=== PATIENT | male | born 1995 | race Caucasian/White ===

== ENCOUNTER 2021-07-04 00:12 | Emergency (ER) | payer SELFPAY ==
[2021-07-04] MEDS ORDERED: fentaNYL Drip 2500mCg/250mlNS 250 ML IV ONE (00:15)
[2021-07-04] MEDS ORDERED: MIDAZOLAM DRIP 50 mg/50mL 50 ML IV ONE (00:20)
[2021-07-04] MEDS ORDERED: ROCURONIUM 10MG/ML 10ML VIAL IV ONE ×2 (00:30→00:45)
[2021-07-04] MEDS ORDERED: HYDROmorphone HCL 2 MG/ML VL IV ONE ×3 (00:45→01:15)
[2021-07-04] MEDS ORDERED: SODIUM CHLORIDE 0.9% 1,000 ML IV ONE (00:45)
[2021-07-04] MEDS ORDERED: MIDAZOLAM DRIP 50 mg/50mL 50 ML IV SCH (00:45)
[2021-07-04] MEDS ORDERED: ETOMIDATE (2MG/ML) 20ML VIAL IV ONE (00:45)
[2021-07-04] MEDS ORDERED: LACTATED RINGER'S 2,000 ML IV ONE (00:45)
[2021-07-04] MEDS ORDERED: SUCCINYLCHOLINE CHLORIDE 20 MG/ML 10ML VIAL IV ONE (00:45)
[2021-07-04 00:50] VITALS: BP 140/76
[2021-07-04] MEDS: fentaNYL Drip 2500mCg/250mlNS 250 ML IV SCH (00:50)
[2021-07-04 01:12] LABS: Basophils # (auto) 0.1 10 ^3/uL (0-0.2); Basophils % (auto) 0.5 % (0.0-2.0); Eosinophils # (auto) 0.1 10 ^3/uL (0-0.8); Eosinophils % (auto) 0.5 % (0.0-7.0); Hematocrit 44.7 % (41.0-53.0); Hemoglobin 15.4 g/dL (13.5-17.5); Lymphocytes # (auto) 2.7 10 ^3/uL (0.4-5.4); Lymphocytes % (auto) 20.8 % (10.0-50.0); Mean Corpuscular Hemoglobin 31.5 pg (28.0-32.0); Mean Corpuscular Hgb Conc. 34.5 g/dL (32.0-36.0); Mean Corpuscular Volume 91.4 fL (80.0-100.0); Monocytes # (auto) 0.7 10 ^3/uL (0-1.3); Monocytes % (auto) 5.2 % (0.0-12.0); Neutrophils # (auto) 9.3 10 ^3/uL (1.6-8.6); Red Cell Distribution Width 13.6 % (11.8-14.3); White Blood Cell 12.8 10^3/uL (4.4-10.8)
[2021-07-04] MEDS ORDERED: ONDANSETRON HCL 4 MG/2 ML VIAL IV ONE (01:15)
[2021-07-04 01:16] LABS: Urine Bacteria NONE SEEN /hpf (None Seen); Urine Blood Negative /uL (Negative); Urine Specific Gravity 1.022 (1.001-1.035); Urine WBC 1 /hpf (0 - 3)
[2021-07-04 01:26] LABS: INR 1.18 (0.9-1.15); Partial Thromboplastin Time 24.5 sec (23.6-33.0)
[2021-07-04 01:31] LABS: Albumin 3.2 g/dL (3.4-5.0); Calcium 7.6 mg/dL (8.5-10.1); Potassium 3.2 mmol/L (3.5-5.1)
[2021-07-04 01:33] LABS: BUN/Creatinine Ratio 13.5
[2021-07-04 01:35] LABS: Bilirubin, Total 0.4 mg/dL (0.2-1.0); Total Protein 5.9 g/dL (6.4-8.2)
== END 2021-07-04 01:03 | disposition short-term general hospital (02) ==
LOC: ER 00:12
DX: T20.30XA Burn of third degree of head, face, and neck, unspecified site, initial encounter (principal); T23.302A Burn of third degree of left hand, unspecified site, initial encounter; T23.301A Burn of third degree of right hand, unspecified site, initial encounter; T21.31XA Burn of third degree of chest wall, initial encounter; X08.8XXA Exposure to other specified smoke, fire and flames, initial encounter; Y93.89 Activity, other specified; Y92.89 Other specified places as the place of occurrence of the external cause; Y99.8 Other external cause status
CPT/HCPCS: 31500; 36415; 71045; 80053; 81001; 85025; 85610; 85730; 96361; 96374; 96375; 96376; 99291; J2250; 94002